=== PATIENT | male | born 1950 | race Native Hawaiian/Other Pacific Islander ===

== ENCOUNTER 2023-08-04 14:19 | Emergency (ER) | payer OTHER ==
[~2023-08-04] VITALS: Ht 165.1 cm; Wt 47.2 kg
[2023-08-04 14:19] VITALS: BP 137/76; TEMP 97.6
[2023-08-04 15:32] LABS: PLATELET COUNT 289 K/uL (142-355)
[2023-08-04] MEDS ORDERED: ASCORBIC ACD500 MG PO (17:04)
[2023-08-04] MEDS ORDERED: ASA LOW DOSE81 MG PO (17:05)
[2023-08-04] MEDS ORDERED: [UNRECOGNIZED DRUG - OTHER] PO (17:06)
[2023-08-04] MEDS ORDERED: DULOXETINE HCL30 MG PO (17:07)
[2023-08-04] MEDS ORDERED: SENNA8.6 MG PO (17:09)
[2023-08-04] MEDS ORDERED: MORP30TA10 PO (17:10)
[2023-08-04] MEDS ORDERED: MORP30TA2 PO (17:12)
[2023-08-04] MEDS ORDERED: HALO5INJ3 IM (17:14)
[2023-08-04] MEDS ORDERED: NEOSPORI2 EX (17:17)
[2023-08-04] MEDS ORDERED: MORP15TA2 PO (18:01)
== END 2023-08-04 15:45 | disposition other institution (70) ==
LOC: ED 14:19
PROVIDERS: Family Medicine
DX: U07.1 COVID-19 (principal); R45.1 Restlessness and agitation; L89.159 Pressure ulcer of sacral region, unspecified stage; R53.81 Other malaise; Z02.79 Encounter for issue of other medical certificate
CPT/HCPCS: 36415; 80053; 85027; 87635; 93005; 99283; U0003